=== PATIENT | female | born 1935 | race Caucasian/White ===

== ENCOUNTER → 2017-02-27 | Day surgery (SDC) | payer MEDICARE ==
[~2017-02-27] MED LIST: ASPI81CH CHEW; BUPIVACAINE HCL PF 0.25% 30 ML VIAL ONE; BUPIVACAINE HCL PF 0.5% 30 ML VIAL ONE; BUPIVACAINE/EPINEPHRINE 0.25% 50 ML VIAL ONE; BUPIVACAINE/EPINEPHRINE 0.5% PF 10 ML VIAL ONE; CALC500T8 PO; CALCTAB19 PO; ESTR0.5T3 PO; ESTR42.5V VAGINAL; FISH1000 PO; GLUC15009 PO; HYDR-2374 PO; ISOSULFAN BLUE 50 MG/5 ML VIAL SQ ONE; KETOROLAC TROMETHAMINE 30 MG/ML (IVP) VIAL ONE; LACTATED RINGER'S 1000 ML INJ 1,000 ML ONE; LOVA10TA PO; METR1GEL2 TOPICAL; MIDAZOLAM HCL 2 MG/2 ML VIAL ONE; MOBI15TA PO; MULT-159 PO; NITR1CAP37 PO; ONDANSETRON HCL 4 MG/2 ML VIAL IV PUSH ONE; OPTI400C PO; PROPOFOL 200 MG/20 ML AMP IV ONE; SODIUM CHLORIDE 0.9% INJ 10 ML ONE; TIZA2CAP3 PO; TRAZ50TA12 PO; VITA1000 PO; ceFAZolin 2 GM PREMIX 50 ML ONE
--- NOTE | 2017-02-27 13:35 | TN ---
cc: CARY SEAY DATE OF SURGERY 02/27/2017 PRINCIPAL DIAGNOSIS Multifocal left breast cancer. PROCEDURE PERFORMED Left mastectomy and left axillary sentinel lymph node biopsy. SURGEON Cary Seay MD ANESTHESIA General via LMA device. 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 Subsequent MRI demonstrated an upper outer area of enhancement and MR guided biopsy demonstrated a focus of invasive ductal carcinoma. Because she had multifocal disease, she now presents for mastectomy and sentinel lymph node biopsy. She has opted against reconstruction. FINDINGS AT THE TIME OF SURGERY One sentinel lymph node was identified. This had a count of 2740 and was 1+ blue. PROCEDURE PERFORMED After informed consent was obtained and site verification was performed, the patient was brought to the radiology suite where she underwent peritumoral radionuclide injection. She was then brought to the major operating room where she underwent general anesthesia via an LMA device. She was given a single dose of IV Ancef and sequential compression hose were placed. 3 cc of half-strength Lymphazurin were injected in the subareolar left breast and a 5-minute massage was performed. A classic elliptical incision was marked out and 200 cc of tumescent solution mixed with 15 cc of 0.25% Marcaine with epinephrine were then infiltrated circumferentially in the plane between the subcutaneous fat and anterior breast fascia. Sharp dissection was performed in the same plane medially to the parasternal area, superiorly to the clavicle, laterally to the axilla, and inferiorly to the anterior rectus sheath. Electrocautery was then used to dissect the breast off the pectoralis muscle including the pectoralis fascia with the specimen. The breast was then amputated in the axilla and oriented with the skin anterior, one short suture superiorly, and one long suture laterally. The specimen was sent for permanent pathologic evaluation. The clavipectoral fascia was then divided and the level I axilla was immediately identified. There was one mildly enlarged mid level I lymph node which was circumferentially dissected free from surrounding structures using the harmonic scalpel. This lymph node had the 2740 count and was 1+ blue. It was sent as a sentinel lymph node for permanent pathologic evaluation and no touch prep was performed. Some adjacent smaller nodes were circumferentially dissected free from surrounding structures using the harmonic scalpel, but these had no count and were sent as a permanent specimen. The background count was 21 and good hemostasis was noted on both the chest wall and the axilla. A stab wound was created along the lateral inferior flap and a 10-Setswana round drain was placed along the chest wall and secured to the skin with a 3-0 nylon suture. The wound was then closed using interrupted 3-0 Vicryl subcutaneous sutures and a 4-0 Monocryl subcuticular suture. Steri-Strips and sterile dressing were applied. The patient tolerated the procedure well with a blood loss of 250 cc and she was extubated in the operating room and brought to the recovery room in good condition. All sponge and needle counts were correct at the conclusion of the case. MD SANCHO Young/JEFFERSON /1:13 PM /1:24 PM
== END | disposition home or self-care (01) ==
LOC: ESDC 07:09
PROVIDERS: ATTEND Surgery
DX: C50.912 Malignant neoplasm of unspecified site of left female breast (principal)
CPT/HCPCS: 00400; 01610; 19303; 38525; 38792; 88305; 88307; J0690; J1885; J2250; J2405; J3010; J7120; Q9968; 88309

== ENCOUNTER 2017-06-09 12:25 | Emergency (ER) | payer MEDICARE ==
[~2017-06-09] VITALS: Ht 167.6 cm; Wt 67.0 kg
[~2017-06-09 12:25] MED LIST changes: +ANAS1TAB PO; +ASPI-516 CHEW; -ASPI81CH CHEW; -BUPIVACAINE HCL PF 0.25% 30 ML VIAL ONE; -BUPIVACAINE HCL PF 0.5% 30 ML VIAL ONE; -BUPIVACAINE/EPINEPHRINE 0.25% 50 ML VIAL ONE; -BUPIVACAINE/EPINEPHRINE 0.5% PF 10 ML VIAL ONE; +CITA20TA4 PO; -ESTR0.5T3 PO; -ESTR42.5V VAGINAL; -ISOSULFAN BLUE 50 MG/5 ML VIAL SQ ONE; -KETOROLAC TROMETHAMINE 30 MG/ML (IVP) VIAL ONE; -LACTATED RINGER'S 1000 ML INJ 1,000 ML ONE; -MIDAZOLAM HCL 2 MG/2 ML VIAL ONE; -MULT-159 PO; -NITR1CAP37 PO; -ONDANSETRON HCL 4 MG/2 ML VIAL IV PUSH ONE; -PROPOFOL 200 MG/20 ML AMP IV ONE; -SODIUM CHLORIDE 0.9% INJ 10 ML ONE; +THERH PO; -ceFAZolin 2 GM PREMIX 50 ML ONE
[2017-06-09 12:27] VITALS: BP 200/95; PULSE 87; RESP 20; TEMP 98.3; O2SAT 97
--- NOTE | 2017-06-09 13:37 | PD ---
Physical Exam Time Seen by Provider: 13:35 Narrative 81yo F c/o "back spasm x 1 week and can't take it any longer." Denies injury. Denies chest pain, SOB. Denies cough, fever, vomiting. Patient seen in triage. VS reviewed. Awaiting bed placement. See next providers note for final patient disposition. Data Data Last Documented VS Vital Signs Date Time Temp Pulse Resp B/P (MAP) Pulse Ox O2 Delivery O2 Flow Rate FiO2 06/09/17 12:27 98.3 87 20 200/95 (130) 97 Room Air MDM Supervised Visit with GILDARDO: Trista Hdez Jun 09, 2017 13:37
[2017-06-09] MEDS ORDERED: methylPREDNISolone SOD SUCC 125 MG/2 ML VIAL IM ONE (14:15)
[2017-06-09] MEDS ORDERED: LIDOCAINE HCL 1% 20 ML VIAL INFIL ONE (14:15)
[2017-06-09] MEDS ORDERED: ORPHENADRINE INJ 60 MG/2 ML AMP IM ONE (14:15)
[2017-06-09] MEDS ORDERED: MEDR4PAK PO (14:17)
--- NOTE | 2017-06-09 14:18 | PD ---
HPI Chief Complaint: Back/ Neck Pain or Injury Time Seen by Provider: 14:04 Travel History International Travel<30 days: No Contact w/Intl Traveler<30days: No Traveled to known affect area: No History of Present Illness HPI 81-year-old female presents to emergency department complaining of muscle spasms to the mid right side back. Patient states that she started having this pain on Saturday and has seen her primary care physician who gave her 2 shots. States the pain did help a little bit but has returned rather quickly. Patient then followed up with Dr. Miller with [facility] and she was instructed to increase her muscle relaxer and start hydrocodone. Patient has tried her inversion table and stretches but the pain is persistent. Patient states that her pain is persistent. Patient denies radiation of pain. Describes as constant and moderate to severe. States that she can't take it any longer. Patient denies fever, chills, loss of bowel or bladder function, saddle anesthesia, trauma, history of IV drug use. Patient does have a history of chronic back pain for approximately 10 years. Patient is due to follow up with orthopedics doctor and pain management for further injections. PFSH Past Medical History Cancer: Yes (BASAL CELL CA REMOVED face neck left arm and back) Cardiovascular Problems: No Diabetes: No Endocrine: No Gastrointestinal Disorders: No Genitourinary: No Hepatitis: No Hiatal Hernia: No Hypertension: No Immune Disorder: No Medical other: Yes (ARTHRITIS, HYPERCHOESTEROLEMIA,BULDGING DISC LOWER BACK/ STENOSIS) Musculoskeletal: Yes (R HIP PAIN AND BACK PAIN,) Neurologic: No Psychiatric: No Reproductive: No Respiratory: No Thyroid Disease: No Past Surgical History Abdominal Surgery: Yes (INES.) AICD: No Eye Surgery: Yes (left eye) Gynecologic Surgery: Yes (HYSTERECTOMY) Hysterectomy: Yes Joint Replacement: No Pacemaker: No Other Surgery: Yes Social History Alcohol Use: No Tobacco Use: No Substance Use: No Allergies-Medications (Allergen,Severity, Reaction): Coded Allergies: No Known Allergies (Unverified Adverse Reaction, Unknown, 06/09/17) Reported Meds & Prescriptions Reported Meds & Active Scripts Active Medrol Dosepak (Methylprednisolone) 4 Mg Dspk 4 Mg PO DIRECTED Per Pharmacist direction Fish Oil (Carlton-3 Fatty Acids) 1,000 Mg Cap 2 Tab PO DAILY Reported Anastrozole 1 Mg Tab 1 Mg PO DAILY Citalopram (Citalopram Hydrobromide) 20 Mg Tab 20 Mg PO DAILY Therems-H (Multivitamin Hematinic Therapeutic) 1 Tab 1 Tab PO DAILY Tizanidine (Tizanidine HCl) Unknown Strength Cap Unknown Dose PO TID Calcium Oyster Shell (Calcium Carbonate) 1,250 Mg Tab 1,250 Mg PO DAILY 1,250 mg calcium carbonate (500 mg elemental calcium) Vitamin D-1000 (Cholecalciferol) 1,000 Unit Tab 4,000 Units PO DAILY Metrogel (Metronidazole) 1 % Gel..gram. 1 % TOPICAL HS Trazodone (Trazodone HCl) 50 Mg Tab 50 Mg PO HS Hydrocodone-Acetaminophen 10-300 Tab 1 Tab PO Q6H PRN Mobic (Meloxicam) 15 Mg Tab 15 Mg PO DAILY Lovastatin 10 Mg Tab 10 Mg PO DAILY Glucosamine 1,500 Mg Tab 1,500 Mg PO DAILY Optiflex-C (Chondroitin Sulfate) 400 Mg Cap 1,200 Mg PO DAILY Calcium 600+D 200 (Calcium Carbonate-Vitamin D) 600-200 Mg-Unit Tab 1 Tab PO BID Aspirin 81 Mg Chew 81 Mg CHEW DAILY Review of Systems Except as stated in HPI: all other systems reviewed are Neg Physical Exam Narrative GENERAL: A well-nourished in mild distress, moving about in bed slowly SKIN: Focused skin assessment warm/dry. HEAD: Atraumatic. Normocephalic. EYES: Pupils equal and round. No scleral icterus. No injection or drainage. NECK: Supple, nontender. No meningeal signs. Trachea midline. No JVD or lymphadenopathy. NECK: Trachea midline. No JVD. CARDIOVASCULAR: Regular rate and rhythm. No murmur appreciated. RESPIRATORY: No accessory muscle use. Clear to auscultation. Breath sounds equal bilaterally. MUSCULOSKELETAL: No obvious deformities. No clubbing. No cyanosis. No edema. BACK: No CVA tenderness. No rash. No point tenderness on palpation of the spine. Significant muscle spasms to the right of the lower thoracic and upper lumbar spine. Tender to palpation, reproduces her pain. DTRs intact, neurovascularly intact NEUROLOGICAL: Awake and alert. No obvious cranial nerve deficits. Motor grossly within normal limits. Normal speech. PSYCHIATRIC: Appropriate mood and affect; insight and judgment normal. Data Data Last Documented VS Vital Signs Date Time Temp Pulse Resp B/P (MAP) Pulse Ox O2 Delivery O2 Flow Rate FiO2 06/09/17 14:52 06/09/17 12:27 98.3 87 20 97 Room Air Orders Orders Lidocaine 1% Inj (Xylocaine 1% Inj) (06/09/17 14:15) Methylprednisolone So Succ Inj (Solumedr (06/09/17 14:15) Orphenadrine Inj (Norflex Inj) (06/09/17 14:15) Ed Discharge Order (06/09/17 14:45) [facility] Medical Decision Making Medical Screen Exam Complete: Yes Emergency Medical Condition: Yes Differential Diagnosis Lumbar muscle spasms, lumbago, sciatica Narrative Course 81-year-old female presents to emergency department complaining of muscle spasms to the mid right side back. Patient states that she started having this pain on Saturday and has seen her primary care physician who gave her 2 shots. States the pain did help a little bit but has returned rather quickly. Patient then followed up with Dr. Miller with [facility] and she was instructed to increase her muscle relaxer and start hydrocodone. Patient has tried her inversion table and stretches but the pain is persistent. Patient states that her pain is persistent. Patient denies radiation of pain. Describes as constant and moderate to severe. States that she can't take it any longer. Patient denies fever, chills, loss of bowel or bladder function, saddle anesthesia, trauma, history of IV drug use. Patient does have a history of chronic back pain for approximately 10 years. Patient is due to follow up with orthopedics doctor and pain management for further injections. Vital signs stable. Physical exam findings consistent with muscle spasms. No red flag signs. Patient will receive SoluMedrol 125 mg and Norflex in the ER today. For trigger point injections performed today. Patient states she has some mild relief from this. Patient will be discharged with Medrol Dosepak. Advised to continue medications as prescribed by her previous physicians. Advised to follow-up with her outpatient specialists as discussed. Return to the emergency department for red flag signs or symptoms. Procedures Procedure Narrative Patient and and I discussed risks versus benefits of trigger point injections. I explained there is a potential for introduction of bacteria causing infection or nerve damage. Patient states understanding and requests to proceed with the procedure. 4 Trigger point injections performed within the muscle right of lower thoracic and upper lumbar with 1% lidocaine without epinephrine. Each injection was aspirated and assessed for proper placement. Total of 3.5mL use for anesthesia. Patient tolerated well. EBL minimal Diagnosis Primary Impression: Muscle spasm Referrals: Primary Care Physician Additional Instructions: Follow-up with the specialist as scheduled. Take all medication as prescribed. Perform light stretches of the lower back and legs, and alternate heat and ice packs. If you develop increased pain, weakness, fever, chills, or bowel or bladder issues, return to the ED for further treatment and evaluation. Follow up with your primary care physician in 2-3 days. Scripts Methylprednisolone Dosepak (Medrol Dosepak) 4 Mg Dspk 4 MG PO DIRECTED, #1 DSPK 0 Refills Per Pharmacist direction Prov: Lana Coleman 06/09/17 Disposition: 01 DISCHARGE HOME Condition: Stable Lana Coleman Jun 09, 2017 14:18
== END 2017-06-09 14:59 | disposition home or self-care (01) ==
LOC: NEPK 12:25
DX: M62.830 Muscle spasm of back (principal); M19.90 Unspecified osteoarthritis, unspecified site; E78.00 Pure hypercholesterolemia, unspecified; Z79.82 Long term (current) use of aspirin; Z79.899 Other long term (current) drug therapy
CPT/HCPCS: 20552; 99284; J2360; J2930

== ENCOUNTER → 2017-10-14 | Outpatient (CLI) | DX: H26.40 Unspecified secondary cataract (principal); Z96.1 Presence of intraocular lens ==